=== PATIENT | female | born 1995 | race Caucasian/White ===

== ENCOUNTER 2019-08-21 05:57 | Inpatient (IN) | payer OTHER ==
[2019-08-21] MEDS ORDERED: LACTATED RINGERS 1,000 ML ONE ×2 (06:20→06:59)
[2019-08-21] MEDS ORDERED: OXYTOCIN 20 UNIT/1000ML DRIP 40,000 MILLIUNITS/2,000 ML BAG IV ONE (06:59)
[2019-08-21] MEDS ORDERED: DEXMEDETOMIDINE 200 MCG/2 ML VIAL IV ONE (07:36)
[2019-08-21 07:50] LABS: Basophils # (Auto) 0.1 K/mm3 (0.0-0.1); Basophils % (Auto) 0.6 % (0.0-1.8); Eosinophils # (Auto) 0.1 K/mm3 (0.0-0.4); Eosinophils % (Auto) 1.2 % (0.0-4.3); Hematocrit 33.5 % (30.3-42.9); Hemoglobin 10.8 gm/dl (10.1-14.3); Lymphocytes # (Auto) 2.2 K/mm3 (1.2-5.4); Lymphocytes % (Auto) 27.5 % (13.4-35.0); Mean Corpuscular HGB Conc 32 % (30-34); Mean Corpuscular Volume 81 fl (79-97); Monocytes # (Auto) 0.5 K/mm3 (0.0-0.8); Monocytes % (Auto) 6.9 % (0.0-7.3); Platelet Count 206 K/mm3 (140-440); Red Blood Count 4.13 M/mm3 (3.65-5.03); Red Cell Distribution Width 15.7 % (13.2-15.2)
--- NOTE | 2019-08-21 07:53 | Anesthesia Day of Surgery ---
Anesthesia Day of Surgery - Day of Surgery Patient Examined: Yes Patient H&P Reviewed: Yes Patient is NPO: Yes Beta Blockers: No Cardiac Clearance: No Pulmonary Clearance: No Casimiro's Test: N/A
--- NOTE | 2019-08-21 07:55 | Anesthesia Consultation ---
Anesthesia Consult and Med Hx Date of service: 08/21/19 - Airway Anesthetic Teeth Evaluation: Poor ROM Head & Neck: Adequate Mental/Hyoid Distance: Adequate Mallampati Class: Class III Intubation Access Assessment: Probably Good - Pulmonary Exam CTA: Yes - Cardiac Exam Cardiac Exam: RRR - Pre-Operative Health Status ASA Pre-Surgery Classification: ASA3 Proposed Anesthetic Plan: Epidural - Pre-Anesthesia Comment Pre-Anesthesia Comments: PSH: CSECTION - Pulmonary Hx Smoking: No Hx Asthma: No Hx Respiratory Symptoms: No SOB: No COPD: No Home Oxygen Therapy: No Hx Pneumonia: No Hx Sleep Apnea: No - Cardiovascular System Hx Hypertension: Yes (PIH) Hx Coronary Artery Disease: No Hx Heart Attack/AMI: No Hx Angina: No Hx Percutaneous Transluminal Coronary Angioplasty (PTCA): No Hx Cardia Arrhythmia: No Hx Pacemaker: No Hx Internal Defibrillator: No Hx Valvular Heart Disease: No Hx Heart Murmur: No Hx Peripheral Vascular Disease: No - Central Nervous System Hx Neuromuscular Disorder: No Hx Seizures: No CVA: No Hx Back Pain: No Hx Psychiatric Problems: No - Gastrointestinal Hx Ulcer: No Hx Gastroesophageal Reflux Disease: Yes - Endocrine Hx Renal Disease: No Hx End Stage Renal Disease: No Hx Cirrhosis: No Hx Liver Disease: No Hx Insulin Dependent Diabetes: No Hx Non-Insulin Dependent Diabetes: No Hx Thyroid Disease: No Hx Hypothyroidism: No Hx Hyperthyroidism: No - Hematic Hx Anemia: No Hx Sickle Cell Disease: No - Other Systems Hx Alcohol Use: No Hx Substance Use: No Hx Cancer: No Hx Obesity: Yes (BMI 37)
[2019-08-21] MEDS ORDERED: LACTATED RINGERS 1,000 ML IV SCH (08:00)
[2019-08-21] MEDS ORDERED: OXYTOCIN 20 UNIT/1000ML DRIP 20 UNITS/1,000 ML BAG IV SCH ×2 (08:00→10:00)
[2019-08-21] MEDS ORDERED: METOCLOPRAMIDE 10 MG/2 ML INJ IV ONE (08:30)
[2019-08-21] MEDS ORDERED: FAMOTIDINE 20 MG/2 ML INJ IV ONE (08:30)
[2019-08-21] MEDS ORDERED: BICITRA ORAL LIQD 30ML PO ONE (08:30)
[2019-08-21] MEDS ORDERED: SODIUM CHLORIDE 0.9% IRR 1,500 ML BOTTLE IR ONE (08:32)
[2019-08-21] MEDS ORDERED: WATER FOR IRRIG STERILE 1,500 ML BOTTLE IR ONE (08:32)
--- NOTE | 2019-08-21 08:35 | History and Physical Report ---
History of Present Illness Date of examination: 08/21/19 Date of admission: 08/21/19 05:57 Chief complaint: Here for an elective repeat section. History of present illness: Term ; Previous . Past History Past Surgical History: section - Obstetrical History Expected Date of Delivery: 08/28/19 Actual Gestation: 39 Week(s) 0 Day(s) : 2 Para: 1 Medications and Allergies Allergies Allergy/AdvReac Type Severity Reaction Status Date / Time No Known Allergies Allergy Unverified 08/21/19 06:59 Home Medications Medication Instructions Recorded Confirmed Last Taken Type HYDROcodone/APAP 5-325 [[place] 1 - 2 each PO Q4HR PRN #30 tablet 08/21/19 Unknown Rx 5/325] Active Meds: Active Medications Oxytocin/Sodium Chloride (Pitocin/Ns 20 Unit/1000ml Drip) 20 units in 1,000 mls @ 0 mls/hr IV TITR STEPHANI Lactated Ringer's (Lactated Ringers) 1,000 mls @ 2,250 mls/hr IV PREOP STEPHANI Stop: 08/22/19 08:27 Review of Systems All systems: negative - Vital Signs Vital signs: Vital Signs Pulse BP 85 138/84 08/21/19 07:09 08/21/19 07:09 Temp Pulse Resp BP Pulse Ox 98.4 F 85 138/84 08/21/19 07:14 08/21/19 07:09 08/21/19 07:09 - Physical Exam Lungs: Positive: Normal air movement Abdomen: Positive: normal appearance, distention. Negative: tenderness, guarding - Obstetrical FHR: auscultation normal Results Result Diagrams: 08/21/19 06:25 Abnormal lab results 08/21/19 Range/Units 06:25 MCH 26 L (28-32) pg RDW 15.7 H (13.2-15.2) % All other labs normal. Assessment and Plan - Patient Problems (1) Previous delivery affecting , antepartum Current Visit: Yes Status: Acute (2) Term Current Visit: Yes Status: Acute Plan to address problem: For delivery. Patient consented after all her questions had been answered.
[2019-08-21] MEDS ORDERED: ONDANSETRON 4 MG/2 ML INJ ONE (09:16)
[2019-08-21] MEDS ORDERED: PHENYLEPHRINE/NS 1,000 MCG/10 ML SYRINGE (OR USE) IV ONE (09:16)
--- NOTE | 2019-08-21 09:57 | Operative Report ---
Operative Report Operative Report: Date of surgery: 08/21/2019 Preoperative diagnoses: Term , previous section Postoperative diagnoses: The same. Operation: Lower segment transverse delivery Surgeon:Dolores Gan MD [employer] Worker: Stephen Ray CRNA Anesthesia: Spinal block Estimated blood loss: 900 mL Complications: None Findings: There was a live baby boy in vertex, weight was 8 lbs. 5 oz. with Apgars of 8/9. Both ovaries and fallopian tubes as well as the uterus were all unremarkable gravid structures. Procedure in detail: The patient was taken to the operating room and given a spinal block. Patient was placed in the straight supine position and a Muller catheter was inserted. The patient was prepped in the abdomen. The drapes were placed. A timeout was done. With the go ahead from the link trainer operator, a Pfannenstiel incision was made. This incision was carried across the subcutaneous layer to the fascia which was also divided transversely. The recti abdominis muscle flaps were stripped from the fascia using a combination of blunt and sharp dissections. The muscles were sep arated in the midline to gain access to the anterior parietal peritoneum which was divided after excluding any underlying viscera. The access to the peritoneal cavity was then widened by manual stretching. The bladder blade was applied. The utero vesicle peritoneal flap was divided transversely allowing the bladder to be displaced caudally. The uterine incision was placed in the lower segment transversely. The uterine incision was carried to the decidual layer. The uterine incision was extended on both sides using the bandage scissors. The amniotic sac was ruptured with clear fluid. The head was lifted out of the false maternal pelvis and delivered through the incision using fundal pressure. The airways were bulb suctioned beginning with the mouth. Continuing fundal pressure combined with traction on the mandibular processes of the jaw delivered the rest of the baby. The umbilical cord was double clamped and divided. The baby was carefully transferred to the pediatric team. The placenta was manually removed from the uterine cavity. The uterine cavity was explored and was empty of any placental remnants. The uterine incision was repaired in 2 layers with #1 Vicryl. The surgical line on the uterus was hemostatic. Blood and clots were cleared from the peritoneal cavity. The anterior parietal peritoneum was repaired with #1 Vicryl. The fascia was repa ired with #1 Vicryl. The subcutaneous layer was made hemostatic using the Bovie before the skin was closed subcuticularly with 4-0 Vicryl. There were no complications. The estimated blood loss was 900 mL. All sponges and instrument counts were correct. Patient was safely transferred to the recovery room.
--- NOTE | 2019-08-21 10:04 | Post Anesthesia Evaluation ---
- Post Anesthesia Evaluation Patient Participated: Yes Airway Patent: Yes Stable Respiratory Function: Yes Nausea/Vomiting: No Temp > 96.8F: Yes Pain Manageable: Yes Adequeate Hydration: Yes Anesthesia Complications: No Block Receding Appropriately: Yes Patient on Ventilator: No
[2019-08-21] MEDS ORDERED: ONDANSETRON 4 MG/2 ML INJ IV PRN ×2 (10:05→10:30)
[2019-08-21] MEDS ORDERED: NALOXONE 0.4 MG/1 ML INJ IV PRN (10:30)
[2019-08-21] MEDS ORDERED: HYDROmorphone 1 MG/1 ML INJ IV PRN ×2 (10:30)
[2019-08-21] MEDS ORDERED: ACETAMINOPHEN 325 MG TAB PO PRN (10:30)
[2019-08-21] MEDS ORDERED: WITCH HAZEL/ GLYCERIN PAD TP PRN (10:30)
[2019-08-21] MEDS ORDERED: LANOLIN/ZINC/DIMETHICONE (LANSINOH) 7 GM TP PRN (10:30)
[2019-08-21] MEDS: KETOROLAC 30 MG/1 ML INJ IV PRN ×2 (12:28→20:35)
[2019-08-21] MEDS: ceFAZolin/NS 1 GM/50 ML 1 GM/50 ML BAG IV SCH ×2 (16:17→23:59)
[2019-08-21] MEDS: MORPHINE 4 MG/1 ML INJ IV PRN (16:39)
[2019-08-21] MEDS ORDERED: SODIUM CHLORIDE 0.9% 1000 ML IV SOLN IV SCH (17:03)
[2019-08-22 00:20] LABS: Hematocrit 29.8 % (30.3-42.9); Hemoglobin 9.6 gm/dl (10.1-14.3)
[2019-08-22] MEDS: MORPHINE 4 MG/1 ML INJ IV PRN ×2 (01:54→20:40)
[2019-08-22] MEDS ORDERED: TETANUS,DIPH,PERTUSS(ACELL) VACCINE 0.5 ML SYRINGE IM ONE (06:00)
[2019-08-22] MEDS: HYDROcodone/ACETAMINOPHEN 5-325 MG TAB PO PRN ×2 (06:09→16:28)
[2019-08-22] MEDS: IBUPROFEN 800 MG TAB PO PRN ×2 (09:40→18:25)
--- NOTE | 2019-08-22 14:42 | Progress Note ---
Assessment and Plan - Patient Problems (1) S/P repeat low transverse Current Visit: Yes Status: Acute Plan to address problem: Continue routine PP orders Keep dressing dry and intact Anticipate d/c home in 24/48 hrs (2) Anemia Current Visit: Yes Status: Acute Qualifiers: Anemia type: other cause Other causes of anemia: acute posthemorrhagic Qualified Code(s): D62 - Acute posthemorrhagic anemia Plan to address problem: Asymptomatic Continue daily po iron supplementation Increase iron rich foods into diet Subjective - Subjective Date of service: 08/22/19 Principal diagnosis: S/P repeat C/S; POD#1 Interval history: See admission H & P; OB operative summary and PP progress notes Patient reports: appetite normal, voiding normally, pain well controlled (with medications), flatus, ambulating normally, no bowel movement [place]: doing well, bottle feeding (and ) Objective - Vital Signs Latest vital signs: Vital Signs Temp Pulse Resp BP Pulse Ox 08/22/19 09:40 20 08/22/19 07:43 98.4 F 76 20 133/68 96 08/22/19 04:57 98.2 F 77 20 124/65 94 08/22/19 00:29 98.6 F 69 18 125/68 96 08/21/19 16:45 99.3 F 76 20 130/80 98 Intake and Output 08/21/19 08/22/19 08/22/19 23:59 07:59 15:59 Intake Total 530 360 120 Output Total 900 1000 Balance -370 -640 120 Intake: IV 50 ANCEF/NS 1 GM/50 ML 1 gm 50 In 50 ml @ 100 mls/hr IV Q8H [facility] Rx#:[id number] Oral 480 120 Intake, Free Water 360 Output: Urine 900 1000 Indwelling Catheter 900 Void 1000 Other: Total, Intake Amount 480 120 Total, Output Amount 550 500 # Voids Void 1 - Exam Breasts: Present: normal Cardiovascular: Present: Regular rate Lungs: Present: Normal air movement Abdomen: Present: soft, tenderness Uterus: Present: firm, fundal height below umbilicus (U-1) Extremities: Present: normal Deep Tendon Reflex Grade: Normal +2 Incision: Present: dressed (no shadow drainage or bleeding noted) - Labs Labs: Abnormal lab results 08/21/19 Range/Units 23:25 Hgb 9.6 L (10.1-14.3) gm/dl Hct 29.8 L (30.3-42.9) %
[2019-08-22] MEDS: PRENATAL VIT27-FE FUMARATE-FOLIC ACID VIT TAB PO SCH (18:25)
[2019-08-22] MEDS: FERROUS SULFATE 325 MG TAB PO SCH (18:25)
[2019-08-23] MEDS: HYDROcodone/ACETAMINOPHEN 5-325 MG TAB PO PRN (04:15)
[2019-08-23] MEDS: IBUPROFEN 800 MG TAB PO PRN (09:11)
[2019-08-23] MEDS: PRENATAL VIT27-FE FUMARATE-FOLIC ACID VIT TAB PO SCH (09:11)
[2019-08-23] MEDS: FERROUS SULFATE 325 MG TAB PO SCH (09:11)
--- NOTE | 2019-08-23 15:08 | Discharge Summary ---
Providers - Providers Date of Admission: 08/21/19 05:57 Date of discharge: 08/23/19 Attending physician: EZEQUIEL CARRANZA MD Primary care physician: EZEQUIEL CARRANZA MD Hospitalization Reason for admission: section Delivery: Procedure: repeat low transverse Episiotomy: none Laceration: vaginal side wall Incision: dry, intact (no signs of infection noted) Other procedures: none complications: none Discharge diagnosis: other (S/P repeat C/S; Anemia) [place] baby: male Hospital course: See admission H & P; OB operative report and PP progress notes Condition at discharge: Stable Disposition: DC- TO HOME OR SELFCARE - Discharge Diagnoses (1) S/P repeat low transverse Status: Acute (2) Anemia Status: Acute Qualifiers: Anemia type: other cause Other causes of anemia: acute posthemorrhagic Qualified Code(s): D62 - Acute posthemorrhagic anemia Plan - Discharge Medications Prescriptions: Ferrous Sulfate [Feosol 325 MG tab] 325 mg PO QDAY 30 Days #30 tablet HYDROcodone/APAP 5-325 [[place] 5/325] 1 - 2 each PO Q4HR PRN #30 tablet PRN Reason: Pain - Provider Discharge Summary Activity: routine, no sex for 6 weeks, no heavy lifting 4 weeks, no strenuous exercise Diet: other (Iron rich diet) Instructions: routine Additional instructions: [] Smoking cessation referral if applicable(refer to patient education folder for contact #) [] Refer to [facility]'s [facility] Booklet Call your doctor immediately for: * Fever > 100.5 * Heavy vaginal bleeding ( >1 pad per hour) * Severe persistent headache * Shortness of breath * Reddened, hot, painful area to leg or breast * Drainage or odor from incision. * Keep incision clean and dry at all times and follow doctor's instructions regarding bathing/showering - Follow up plan Follow up: EZEQUIEL CARRANZA MD [Primary Care Provider] - 7 Days
[2019-08-23 16:16] VITALS: BP 126/57
== END 2019-08-23 16:30 | disposition home or self-care (01) | DRG 787 ==
LOC: APU 05:57 → OB 11:34
PROVIDERS: ADMIT Obstetrics & Gynecology; ATTEND Obstetrics & Gynecology
PROC: 10D00Z1 Extraction of Products of Conception, Low, Open Approach (ICD-10-PCS; principal; 2019-08-21)
PROC: 0UQG0ZZ Repair Vagina, Open Approach (ICD-10-PCS; 2019-08-21)
PROC: 3E0234Z Introduction of Serum, Toxoid and Vaccine into Muscle, Percutaneous Approach (ICD-10-PCS; 2019-08-22)
DX: O34.211 Maternal care for low transverse scar from previous cesarean delivery (principal); D62 Acute posthemorrhagic anemia; O71.4 Obstetric high vaginal laceration alone; O99.02 Anemia complicating childbirth; O13.4 Gestational [pregnancy-induced] hypertension without significant proteinuria, complicating childbirth; O99.62 Diseases of the digestive system complicating childbirth; K21.9 Gastro-esophageal reflux disease without esophagitis; O99.214 Obesity complicating childbirth; Z3A.39 39 weeks gestation of pregnancy; Z37.0 Single live birth; Z23 Encounter for immunization
CPT/HCPCS: 36415; 85014; 85018; 85025; 86850; 86900; 86901; 90715; G0378; J0690; J1885; J2270; J2370; J2405; J2590; J3490; J7030; J7120